=== PATIENT | male | born 1960 | race Caucasian/White ===

== ENCOUNTER → 2020-04-05 14:25 | Outpatient (BNVA) | payer MEDICARE, SELFPAY | PROVIDERS: Family Provider Registered Nurse; Visit Provider Registered Nurse | DX: E11.9 Type 2 diabetes mellitus without complications (principal); K40.30 Unilateral inguinal hernia, with obstruction, without gangrene, not specified as recurrent | CPT/HCPCS: 80053; 81000; 82043; 83036; 85025 ==

== ENCOUNTER 2020-05-12 08:18 | Outpatient (CLI) | payer MEDICARE, SELFPAY ==
--- NOTE | 2020-05-12 08:54 | MR_ITS ---
WS: [id number] MRI OF THE ADRENALS WITHOUT AND WITH GADOLINIUM ENHANCEMENT. INDICATION: Adrenal nodule follow-up TECHNIQUE: Coronal 2-D fiesta, axial T2 fat sat, dual echo, pre and postcontrast T1 fat sat asset, ax ial 2-D fiesta and pre and postcontrast T1 fat sat asset sequences obtained. FINDINGS: Correlation prior examination MRI Again seen is the lobulated left adrenal mass not significantly changed since prior examinations eloisa uring 1.9 x 2.4 x 2.6 cm. Adrenal nodule demonstrates increased T2 signal abnormality with no signifi cant signal dropout on the out of phase imaging. Again seen is mild enhancement on the postgadolinium imaging. Right adrenal gland is normal. Normal liver and pancreas. No intrahepatic biliary ductal dilatation. Normal gallbladder. A few tiny cortical renal cysts. No hydronephrosis. Normal caliber abdominal aort a. No other significant changes from previous. MR/MR adrenals wo/w con [id number] IMPRESSION: 1. Stable left adrenal nodule measuring 1.9 x 2.4 x 2.6 CM. 2. Adrenal nodule is unchanged since the MRI . No macroscopic fat. Thi s may represent a lipid poor adenoma but remains indeterminate and carcinoma is not excluded. Recommend continued annual surveillance with adrenal CT or MRI. 3. No other significant changes from previous.
[2020-05-12] MEDS: gadobenate dimeglumine 20 mL vial IV (09:34)
== END 2020-05-12 08:19 | disposition home or self-care (01) ==
PROVIDERS: PCP Registered Nurse; Visit Provider Registered Nurse
DX: D35.00 Benign neoplasm of unspecified adrenal gland (principal); E27.9 Disorder of adrenal gland, unspecified; R63.4 Abnormal weight loss
CPT/HCPCS: 74183; 99204; A9577

== ENCOUNTER → 2020-06-03 16:07 | Outpatient (BNVA) | payer MEDICARE, SELFPAY | PROVIDERS: PCP Registered Nurse; Visit Provider Internal Medicine | DX: D35.00 Benign neoplasm of unspecified adrenal gland (principal); R63.4 Abnormal weight loss | CPT/HCPCS: 82530; 82570 ==

== ENCOUNTER → 2020-10-26 10:02 | Outpatient (BNVA) | payer MEDICARE, SELFPAY | PROVIDERS: PCP Registered Nurse; Visit Provider Orthopaedic Surgery | DX: Z01.812 Encounter for preprocedural laboratory examination (principal); Z20.822 Contact with and (suspected) exposure to COVID-19; E11.9 Type 2 diabetes mellitus without complications | CPT/HCPCS: 80053; 81000; 83036; 85025; 87635 ==

== ENCOUNTER 2020-11-02 10:02 | Day surgery (SDC) | payer MEDICARE, SELFPAY ==
[2020-11-01 17:18] VITALS: BMI 18.8
[2020-11-02] VITALS (26 sets, daily range): BP systolic 175–222; BP diastolic 80–122; PULSE 71–98; RESP 10–84; TEMP 36.4–37.1; O2SAT 93–100
--- NOTE | 2020-11-02 | SCC_ITS ---
Procedure Done: Open reduction and internal fixation left distal radius fracture, 3 part 22.5 seconds of fluoroscopic guidance, for a cumulative dose of 0.43 mGy, was provided to Dr. Rivera by the radiology department. C-arm images of the LEFT wrist were saved for the patient's permanent record. [facility]
--- NOTE | 2020-11-02 | XR_ITS ---
WS: [id number] Exam: XR wrist LT 2V [id number] Date/Time of Exam: 11/02/2020 12:00 AM Reason For Exam: LUI PICS AP and lateral C-arm images of the left wrist are submitted for evaluation. There is volar plate and screw fixation involving a fracture of the distal radius. The fracture stabilized in anatomic alignme nt for healing. Ulnar styloid fracture is difficult to identify. XR/XR wrist LT 2V [id number] IMPRESSION: 1. Satisfactory internal orthopedic fixation involving a fracture of the distal radius.
[2020-11-02] MEDS: sodium chloride 0.9% 1,000 ML 30 ML IV ×2 (10:49→15:32)
--- NOTE | 2020-11-02 12:04 | W.PM.OPSUD ---
Surgery/Procedure H&P Update DATE OF PROCEDURE: November 02, 2020 DATE H&P PERFORMED: 10/26/20 PREOP DIAGNOSIS: Fracture Left distal radius PLANNED PROCEDURE: Operation Date: 11/02/20 12:00 Proposed Procedures p ORIF Wrist 59598 S52.502A(Left) - Dameon Rivera MD
--- NOTE | 2020-11-02 12:45 | ANES.PREANE2 ---
Pre-Anesthetic Assessment Pre-Anesthetic Assessment: Height/Weight: Height 1.7 m Weight 54.431 kg Temp Pulse Resp BP Pulse Ox 98.7 F 88 16 199/95 98 11/02/20 10:34 11/02/20 10:34 11/02/20 10:34 11/02/20 10:34 11/02/20 10:34 Preop Diagnosis: Fracture Left distal radius Proposed Procedure: Operation Date: 11/02/20 12:00 Proposed Procedures p ORIF Wrist 25684 S52.502A(Left) - Dameon Rivera MD Was Beta Yash taken within 24 hours: N/A Was Clonidine taken within 24 hours: N/A Last intake: Intake Last Liquid Date 11/02/20 Last Liquid Time 09:00 Last Solid Date 11/01/20 Last Solid Time 22:00 Social: Social History: Tobacco and No alcohol Exam: Pre-Anes Outpt Exam: alert, oriented x 3, clear to auscultation bilaterally and regular rate & rhythm Airway: Submandibular: WNL Cervical ROM: WNL MP: 2 Dentition: Full CV/HEM: CV/HEM: HTN and Murmur Metabolic: Metabolic: DM Anesthetic Plan: ASA status: 3 Anesthesia: General and Regional (specify below) Other: Discussed interscalene nerve block if patient uncomfortable postop Risk of > 500 ml blood loss (7ml/kg in children): No Meds/Allergies Current Medications: Current Medications Generic Name Dose Route Start Last Admin Trade Name Freq PRN Reason Stop Dose Admin Sodium Chloride 1,000 mls @ 30 ml s/hr 11/02/20 10:45 11/02/20 10:49 Sodium Chloride 0.9% IV 11/03/20 10:44 30 mls/hr .Q24H KENYA Administration PFSH Anesthesia PFSH: Medical History Adrenal mass, left Diabetes mellitus Family history not known due to adoption Heart murmur, systolic Hypertension Smoking greater than 40 pack years Surgical History H/O spinal fusion History of cholecystectomy Social History Smoking and tobacco status: current every day smoker cigarettes Packs smoked per day: 1 Alcohol intake: never Adopted: Yes Caregiver/support person: No Lives independently: No Household members: significant other Sexually active: Yes Current gender identity: Male Data Anesthesia Cardiac Studies: No Data to Display
--- NOTE | 2020-11-02 13:18 | P.OP_ITS ---
Operative Report Date of procedure: November 02, 2020 Pre-op Diagnosis: Fracture Left distal radius Post-op diagnosis: same Post-op Findings: Intra-articular fracture left distal radius Procedure Done: Open reduction and internal fixation left distal radius fracture, 3 part Implants: Makenzie Variax short standard distal radius plate Pathology: none sent Anesthesia: General Estimated blood loss (mL): 10 Tourniquet time (min): 30 Complications: None Findings: The patient had a intra-articular fracture of the consisting of a lunate facet and styloid fragment with significant dorsal comminution Condition: stable Disposition: PACU Procedure: Initial attempts were made at closed reduction however a satisfactory stable reduction could not be obtained. A decision was made to proceed with open reduction internal fixation.A 5 cm long incision was made along over the flexor carpi radialis tendon. Dissection was carried down through the tendon sheath. Dissection was carried down bluntly to the pronator quadratus. The pronator quadratus was elevated off of the distal radius leaving a cuff for later repair. Closed reduction was accomplished of the distal radius. A Spring Variax standard short plate was applied. It was fixed distally with 6 locking screws and proximally with 2 bicortical screws and a most distal locking screw. Intraoperative imaging showed excellent position of the hardware. The wound was irrigated with saline. The pronator quadratus was reapproximated with 2-0 Vicryl. Subcutaneous tissues were closed with 2-0 Vicryl. The skin was closed with skin danielle. Sterile dressings were applied. The patient was taken to outpatient surgery in stable condition.
[2020-11-02] MEDS: fentaNYL 50 mcg/mL INJ 2mL IVP ×2 (13:23→13:28)
--- NOTE | 2020-11-02 13:28 | PM.PACU ---
Documented by User: Curly Levin CRNA 11/02/20 13:28 PACU note PACU note: VSS, Good respiratory effort, report to GASOLINE ENGINE INSPECTOR Post-Anesthesia Exam: awake
[2020-11-02] MEDS: HYDROmorphone 1 mg/mL INJ 1 mL IVP (13:33)
[2020-11-02] MEDS: metoprolol tartrate 1 mg/1 mL SDV 5 mL 5 MG IVP (14:12)
--- NOTE | 2020-11-02 14:34 | ANES.PROC ---
Anesthesia Procedures Procedure/Date: 11/02/20 Nerve Block ^: Nerve Block 1: Main Anesthesia: general anesthesia Time Out Performed: Yes Consent: from patient, risks and benefits reviewed and patient agrees to proceed Nerve block location: interscalene (left) Anesthesia monitors applied: pulse oximetry, EKG, BP cuff and oxygen Nerve block position: semi sitting Anesthetic Used: ropivicaine 0.5% Amount of anesthesia used (mL): 30 Ultrasound used to: recognize landmarks Nerve Stimulator Used?: No Interscalene/Femoral BLK: 2 stimuplex 22 g needle used for position and inplane approach and visualize local anesthetic spread Injection: neg aspiration of heme Patient Tolerated Procedure: well Complications: none
[2020-11-02] MEDS: hyDRALAzine 20 mg/mL INJ 1 mL 10 MG IVP (14:40)
--- NOTE | 2020-11-02 15:22 | PC.NURSE ---
Nurse verified with Dr. Calderon that he is satisfied with the patient bp and that the patient is stable to go home.
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
--- NOTE | 2020-11-02 15:49 | SUR.PHASEI ---
1440PT STATES PAIN IS GONE PT VERY ALERT HOB AT 45 DEGREES DISTAL FINGERS PINK WARM CAP REFILL LESS THAN 3 SECONDS, PT BP REMAINS VERY ELEVATED DR COOK AT BEDSIDE ORDERS RECIEVED AND HYDROLAZINE 10MG IVP GIVEN, PT TOLERATED WELL, 1445 BP BETTER, PT TO OPS AND HANDOFF AT BEDSIDE WITH OPS NURSE.
--- NOTE | 2020-11-02 15:58 | ANE.PACU2 ---
Inpatient post-anesthesia follow up: Airway intact: Yes Vital signs: Temperature 97.8 F Pulse Rate 90 Respiratory Rate 15 Blood Pressure 186/91 Pulse Oximetry 96 Oxygen Delivery Me thod Room Air Oxygen Flow Rate 8 Fraction of Inspir ed Oxygen Hydration adequate: Yes Nausea and vomiting: No Pain level: 1 Mental status: Baseline Additional Comments: Difficult pain control, interscalene blk done in PACU. Hypertension treated with lopressor.
[2020-11-03 06:01] LABS: Glucose Point of Care 166 mg/dL (70-110)
== END 2020-11-02 15:40 | disposition home or self-care (01) ==
PROVIDERS: PCP Registered Nurse; Visit Provider Orthopaedic Surgery
PROC: (CPT 25609; principal; 2020-11-02 12:00)
DX: S52.572A Other intraarticular fracture of lower end of left radius, initial encounter for closed fracture (principal); X58.XXXA Exposure to other specified factors, initial encounter; I10 Essential (primary) hypertension; E11.9 Type 2 diabetes mellitus without complications; F17.210 Nicotine dependence, cigarettes, uncomplicated; Z98.1 Arthrodesis status; Z91.19 Patient's noncompliance with other medical treatment and regimen; R63.4 Abnormal weight loss; Z68.1 Body mass index [BMI] 19.9 or less, adult
CPT/HCPCS: 25609; 36416; 64415; 73100; 76000; 76942; 82962; C1713; J0360; J0690; J1170; J1580; J2704; J2795; J3010; J3490; J7030

== ENCOUNTER 2020-11-23 11:06 | Outpatient (CLI) | payer MEDICARE, SELFPAY | END 2020-11-23 11:07 | disposition home or self-care (01) | LOC: SPT 11:07 | PROVIDERS: PCP Registered Nurse; Visit Provider Orthopaedic Surgery | DX: Z46.89 Encounter for fitting and adjustment of other specified devices (principal) | CPT/HCPCS: L3908 ==

== ENCOUNTER → 2020-12-07 15:22 | Outpatient (BNVA) | payer MEDICARE, SELFPAY | PROVIDERS: PCP Registered Nurse; Visit Provider Orthopaedic Surgery | DX: Z48.89 Encounter for other specified surgical aftercare (principal); S52.615D Nondisplaced fracture of left ulna styloid process, subsequent encounter for closed fracture with routine healing; X58.XXXD Exposure to other specified factors, subsequent encounter | CPT/HCPCS: 73110 ==

== ENCOUNTER 2021-09-23 23:14 | Emergency (ER) | payer SELFPAY ==
[2021-09-23 23:21] VITALS: BP 197/97; PULSE 94; RESP 18; TEMP 36.8; O2SAT 100; BMI 20.3
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
[2021-09-24] MEDS: tetanus-dipt-pertussis 0.5 mL SDV IM (00:46)
[2021-09-24] MEDS: ceFAZolin 2,000 MG in sodium chloride 0.9% (plus) 50 ML 100 MG IV (01:00)
[2021-09-24] MEDS: lactated ringers 1,000 ML 125 ML IV (01:00)
[2021-09-24 01:02] VITALS: RESP 20; O2SAT 97
[2021-09-24] MEDS: ondansetron 2 mg/ML SDV 2 mL 4 MG IVP (01:02)
[2021-09-24] MEDS: fentaNYL 50 mcg/mL INJ 2mL 75 MCG IVP (01:02)
--- NOTE | 2021-09-24 01:03 | PC.NURSE ---
o2 pt placed on 2l o2 for comfort at this time bc pt states 'its hard to breathe'
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
[2021-09-24 01:34] VITALS: BP 120/81; PULSE 95; RESP 17; O2SAT 98
[2021-09-24 02:05] VITALS: BP 120/87; PULSE 81; O2SAT 98
== END 2021-09-24 02:06 | disposition short-term general hospital (02) ==
PROVIDERS: Emergency Provider Emergency Medicine; PCP Registered Nurse
DX: S09.8XXA Other specified injuries of head, initial encounter (principal); S52.601A Unspecified fracture of lower end of right ulna, initial encounter for closed fracture; S61.511A Laceration without foreign body of right wrist, initial encounter; V89.2XXA Person injured in unspecified motor-vehicle accident, traffic, initial encounter; E11.9 Type 2 diabetes mellitus without complications; I10 Essential (primary) hypertension; F17.210 Nicotine dependence, cigarettes, uncomplicated; Z23 Encounter for immunization
CPT/HCPCS: 12002; 70450; 71250; 72125; 73110; 73562; 74176; 90471; 90715; 96365; 96375; 96376; 99285; J2405; J3010